=== PATIENT | male | born 2000 | race Hispanic/Latino ===

== ENCOUNTER 2020-12-01 08:50 | Emergency (ER) | payer OTHER ==
[~2020-12-01] VITALS: Ht 170.2 cm; Wt 70.8 kg
== END 2020-12-01 10:21 | disposition home or self-care (01) ==
LOC: FSED 09:25
DX: S13.4XXA Sprain of ligaments of cervical spine, initial encounter (principal); V43.52XA Car driver injured in collision with other type car in traffic accident, initial encounter; Y92.488 Other paved roadways as the place of occurrence of the external cause
CPT/HCPCS: 99282